=== PATIENT | female | born 1970 | race Hispanic/Latino ===

== ENCOUNTER 2018-07-25 16:51 | Emergency (ER) | payer OTHER ==
[2018-07-25] MEDS ORDERED: FAMOTIDINE/PF 20 MG/2 ML VIAL IV ONE (17:37)
[2018-07-25 18:05] LABS: BILIRUBIN,URINE Negative (NEGATIVE); COLOR,URINE Yellow (YELLOW); GLUCOSE, URINE (UA) Negative (NEGATIVE); KETONES,URINE Trace mg/dL (NEGATIVE); LEUKOCYTE ESTERASE ,URINE Negative (NEGATIVE); NITRATE,URINE Negative (NEGATIVE); OCCULT BLOOD,URINE Negative (NEGATIVE); PROTEIN,URINE Negative (NEGATIVE)
[2018-07-25 18:06] LABS: APPEARANCE,URINE SLIGHTLY CLOUDY (CLEAR)
[2018-07-25 18:12] LABS: BACTERIA,URINE Rare /HPF (None Seen); MUCUS,URINE Rare LPF (None Seen); RBC,URINE 0-1 /HPF (0-1); SQUAMOUS EPITHELIAL CELL,UR Rare /HPF (0-2); WBC,URINE 0-1 /HPF (0-1)
[2018-07-25] MEDS ORDERED: LIDOCAINE HCL 2% VISCOUS 15 ML UDCUP ONE (18:42)
[2018-07-25] MEDS ORDERED: LACTULOSE 20 GM/30 ML UDCUP ONE (18:42)
[2018-07-25] MEDS ORDERED: MAG HYDROX/AL HYDROX/SIMETH ES 30 ML SUSP UDCUP ONE (18:43)
== END 2018-07-25 19:19 | disposition home or self-care (01) ==
LOC: EDH 16:51
DX: C18.9 Malignant neoplasm of colon, unspecified (principal); K59.00 Constipation, unspecified; R10.13 Epigastric pain; Z72.0 Tobacco use
CPT/HCPCS: 36415; 74018; 81001; 83690; 96374; 99285; J3490

== ENCOUNTER 2018-12-22 20:51 | Inpatient (IN) | payer OTHER ==
[~2018-12-22] VITALS: Ht 160 cm; Wt 81.2 kg
[2018-12-22 21:57] LABS: BASOPHILS % (AUTO) 0.1 % (0.0-5.0); EOSINOPHILS % (AUTO) 0.1 % (0.0-8.0); LYMPHOCYTES % (AUTO) 5.5 % (21.0-51.0); MEAN CORPUSCULAR HEMOGLOBIN 32.7 pg (27.0-33.0); MEAN CORPUSCULAR HGB CONC 33.7 g/dL (32.0-36.0); MEAN CORPUSCULAR VOLUME 97.1 fL (79-99); MONOCYTES % (AUTO) 0.6 % (3.0-13.0); NEUTROPHILS % (AUTO) 93.7 % (40.0-77.0); NUCLEATED RED BLOOD CELLS 0.1 % (0.0-0.19); PLATELET COUNT (AUTO) 150 K/uL (130-400); RED BLOOD CELL COUNT(AUTO) 3.92 MIL/uL (4.00-5.50); RED CELL DISTRIBUTION WIDTH 18.1 % (11.0-15.5); WHITE BLOOD COUNT (AUTO) 12.5 K/uL (4.8-10.8)
[2018-12-22] MEDS: PYRIDOXINE HCL 50 MG TABLET PO SCH (22:07)
[2018-12-22] MEDS: GABAPENTIN 100 MG CAPSULE PO SCH (22:07)
[2018-12-22 22:11] LABS: POTASSIUM 3.5 mmol/L (3.5-5.1)
[2018-12-22 22:14] LABS: INR 0.94 (0.85-1.15); PARTIAL THROMBOPLASTIN TIME 26.1 SEC (26.3-35.5); PROTHROMBIN TIME 9.9 SEC (9.6-11.6)
[2018-12-22 22:15] LABS: ALBUMIN 3.7 g/dL (3.5-5.0); BILIRUBIN,TOTAL 0.3 mg/dL (0.2-1.0)
[2018-12-22] MEDS: SODIUM CHLORIDE 0.9% 1000ML 1,000 ML IV SCH (22:15)
[2018-12-22] MEDS ORDERED: SODIUM CHLORIDE 0.9% 1000ML 1,000 ML IV ONE (22:48)
[2018-12-22] MEDS ORDERED: GABAPENTIN 100 MG CAPSULE ONE (23:37)
[2018-12-22 23:50] VITALS: BP 118/78
--- NOTE | 2018-12-22 23:50 | NUR ---
Admission note: Received pt. per stretcher. AOx3. Can amb with assist. Verbalized she still has a feeling of numbness and tingling sensation , but tolerable. Has portacath to right chest with 1L NS 100 at ml/hr - intact and patency checked. Pt. oriented to room and used of call light. Policies and procedures explained. Verbalized understanding.Assessment done. VS checked and recorded. Orders carried out. Monitored and observed for any unusualities. Cared for and needs attended.No apparent distress noted. Endorsed to next shift accordingly.
[2018-12-23 03:10] VITALS: BP 104/63
[2018-12-23] MEDS: SODIUM CHLORIDE 0.9% 1000ML 1,000 ML IV SCH ×2 (07:23→19:51)
[2018-12-23 09:19] VITALS: BP 111/69
[2018-12-23] MEDS: PYRIDOXINE HCL 50 MG TABLET PO SCH (11:22)
[2018-12-23] MEDS: GABAPENTIN 100 MG CAPSULE PO SCH ×2 (11:22→20:17)
[2018-12-23 12:01] VITALS: BP 110/67
[2018-12-23] MEDS ORDERED: KETOROLAC TROMETHAMINE 15MG/ML IV PRN (12:45)
[2018-12-23 16:59] VITALS: BP 112/68
[2018-12-23 20:16] VITALS: BP 110/62
[2018-12-24 00:09] VITALS: BP 99/54
[2018-12-24 04:00] VITALS: BP 104/68
[2018-12-24] MEDS: SODIUM CHLORIDE 0.9% 1000ML 1,000 ML IV SCH ×2 (04:15→20:26)
[2018-12-24] MEDS: GABAPENTIN 100 MG CAPSULE PO SCH ×2 (07:37→20:26)
[2018-12-24] MEDS: PYRIDOXINE HCL 50 MG TABLET PO SCH (07:37)
[2018-12-24 08:57] VITALS: BP 106/71
--- NOTE | 2018-12-24 10:00 | NUR ---
MD MEYERS PATIENT AWAKE AND ALERT IN BED. VOICES ALL NEEDS, NO COMPLAINTS OF PAIN VOICED AT THIS TIME. VITALS STABLE. AFEBRILE. TOLERATING NS INFUSING AT 100ML/HR. VISITED WITH PATIENT. POC DISCUSSED. NEW ORDERS RECEIVED AND CARRIED OUT. NO SIGNS OF DISTRESS NOTED. UP AD DAVEY. AMBULATES IN HALLWAY. CALL LIGHT WITHIN REACH. WILL CONTINUE TO BE OBSERVED. Addendum: 12/24/18 at 1354 by GISELL LE RN RN Amended: Links added.
[2018-12-24 12:06] VITALS: BP 108/65
--- NOTE | 2018-12-24 14:57 | NUR ---
cm note met with patient and states resides at home with mother, independent and active at home. 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 and drives. no dme. no services. dc plan is back to same setting at [place] no dc needs. Addendum: 12/24/18 at 1459 by JULIO CESAR WHITFIELD CM Amended: Links added.
[2018-12-24 16:57] VITALS: BP 108/65
[2018-12-24 19:30] VITALS: BP 102/65
[2018-12-25 00:44] VITALS: BP 101/51
[2018-12-25 04:00] VITALS: BP 97/60
[2018-12-25 05:35] LABS: HEMATOCRIT 31.2 % (36-48); MEAN CORPUSCULAR HEMOGLOBIN 33.6 pg (27.0-33.0); MEAN CORPUSCULAR HGB CONC 33.8 g/dL (32.0-36.0); MEAN CORPUSCULAR VOLUME 99.3 fL (79-99); NUCLEATED RED BLOOD CELLS 0.1 % (0.0-0.19); PLATELET COUNT (AUTO) 110 K/uL (130-400); RED BLOOD CELL COUNT(AUTO) 3.14 MIL/uL (4.00-5.50); WHITE BLOOD COUNT (AUTO) 4.9 K/uL (4.8-10.8)
[2018-12-25 05:38] LABS: CREATININE 0.7 mg/dL (0.5-1.5); POTASSIUM 3.6 mmol/L (3.5-5.1)
[2018-12-25 08:00] VITALS: BP 104/54
[2018-12-25] MEDS: GABAPENTIN 100 MG CAPSULE PO SCH ×3 (09:00→21:11)
[2018-12-25] MEDS: PYRIDOXINE HCL 50 MG TABLET PO SCH (09:05)
[2018-12-25 11:00] VITALS: BP 94/62
[2018-12-25] MEDS: SODIUM CHLORIDE 0.9% 1000ML 1,000 ML IV SCH ×2 (11:37→21:15)
--- NOTE | 2018-12-25 12:10 | NUR ---
Dr. Blackmon in to see pt.
[2018-12-25] MEDS ORDERED: GADODIAMIDE 10 MMOL/20 ML ML IV ONE (12:48)
--- NOTE | 2018-12-25 12:55 | NUR ---
Pt. taken for MRI via W/C, left in stable condition.
--- NOTE | 2018-12-25 13:26 | NUR ---
Pt. back from MRI in stable condition.
[2018-12-25 16:00] VITALS: BP 100/66
--- NOTE | 2018-12-25 17:20 | NUR ---
RD Notification Patient tolerating current Regular diet with no report of GI distress and PO intake at 100% as per patient. Patient demonstrates awareness of dietary recommendations with ileostomy. Patient LBM 12/24/18. Patient monitored lab: ca 8.1. Patient BMI 31.7, Obesity class I. Patient with PMH of Rectal cancer, DM, Neuropathy. RD to continue to monitor. Please notify RD as nutritional concerns arise. Thank you. Addendum: 12/25/18 at [address] RD Amended: Links added.
[2018-12-25 20:52] VITALS: BP 104/69
[2018-12-26 00:19] VITALS: BP 97/58
[2018-12-26 04:38] VITALS: BP 80/57
[2018-12-26 05:11] LABS: BASOPHILS % (AUTO) 0.8 % (0.0-5.0); EOSINOPHILS % (AUTO) 5.4 % (0.0-8.0); HEMATOCRIT 30.2 % (36-48); LYMPHOCYTES % (AUTO) 15.8 % (21.0-51.0); MEAN CORPUSCULAR HEMOGLOBIN 33.7 pg (27.0-33.0); MEAN CORPUSCULAR HGB CONC 34.6 g/dL (32.0-36.0); MEAN CORPUSCULAR VOLUME 97.5 fL (79-99); MONOCYTES % (AUTO) 3.2 % (3.0-13.0); NEUTROPHILS % (AUTO) 74.8 % (40.0-77.0); NUCLEATED RED BLOOD CELLS 0.2 % (0.0-0.19); PLATELET COUNT (AUTO) 103 K/uL (130-400); RED BLOOD CELL COUNT(AUTO) 3.09 MIL/uL (4.00-5.50); RED CELL DISTRIBUTION WIDTH 18.4 % (11.0-15.5); WHITE BLOOD COUNT (AUTO) 4.5 K/uL (4.8-10.8)
[2018-12-26 05:23] LABS: CREATININE 0.7 mg/dL (0.5-1.5); POTASSIUM 3.8 mmol/L (3.5-5.1)
[2018-12-26 08:00] VITALS: BP 109/73
[2018-12-26] MEDS: PYRIDOXINE HCL 50 MG TABLET PO SCH ×2 (09:00→09:20)
[2018-12-26] MEDS: GABAPENTIN 100 MG CAPSULE PO SCH (09:19)
[2018-12-26 12:00] VITALS: BP 140/70
[2018-12-26] MEDS ORDERED: HEPARIN SODIUM/PF 100UNIT/ML 5ML SYRINGE IV SCH (13:00)
== END 2018-12-26 14:05 | disposition home or self-care (01) | DRG 74 ==
LOC: EDH 20:51 → EDHIP 21:47 → 4CH 22:28
PROVIDERS: ADMIT Internal Medicine Medical Oncology; ATTEND Internal Medicine Medical Oncology
DX: G62.0 Drug-induced polyneuropathy (principal); E86.0 Dehydration; D72.829 Elevated white blood cell count, unspecified; K21.9 Gastro-esophageal reflux disease without esophagitis; R47.81 Slurred speech; T45.1X5A Adverse effect of antineoplastic and immunosuppressive drugs, initial encounter; Z80.0 Family history of malignant neoplasm of digestive organs; Z85.048 Personal history of other malignant neoplasm of rectum, rectosigmoid junction, and anus; Z92.3 Personal history of irradiation; Z80.3 Family history of malignant neoplasm of breast; Y92.89 Other specified places as the place of occurrence of the external cause
CPT/HCPCS: 36415; 70553; 80048; 80053; 82948; 85025; 85027; 85610; 85730; 93005; A9579; G0378; J1642; J1885; J7030

== ENCOUNTER 2019-05-23 11:20 | Emergency (ER) | payer OTHER ==
[2019-05-23] MEDS ORDERED: SODIUM CHLORIDE 0.9% 1000ML 1,000 ML IV ONE (11:36)
[2019-05-23 12:54] LABS: BASOPHILS % (AUTO) 0.4 % (0.0-5.0); EOSINOPHILS % (AUTO) 2.4 % (0.0-8.0); HEMATOCRIT 34.3 % (36-48); LYMPHOCYTES % (AUTO) 13.7 % (21.0-51.0); MEAN CORPUSCULAR HEMOGLOBIN 31.7 pg (27.0-33.0); MEAN CORPUSCULAR HGB CONC 33.6 g/dL (32.0-36.0); MEAN CORPUSCULAR VOLUME 94.3 fL (79-99); MONOCYTES % (AUTO) 6.5 % (3.0-13.0); PLATELET COUNT (AUTO) 269 K/uL (130-400); RED BLOOD CELL COUNT(AUTO) 3.64 MIL/uL (4.00-5.50); RED CELL DISTRIBUTION WIDTH 13.8 % (11.0-15.5); WHITE BLOOD COUNT (AUTO) 5.4 K/uL (4.8-10.8)
[2019-05-23 13:06] LABS: CREATININE 0.8 mg/dL (0.5-1.5)
[2019-05-23 13:09] LABS: INR 0.97 (0.85-1.15); PROTHROMBIN TIME 10.2 SEC (9.6-11.6)
[2019-05-23 13:11] LABS: ALBUMIN 3.4 g/dL (3.5-5.0); BILIRUBIN,TOTAL 0.2 mg/dL (0.2-1.0); TOTAL PROTEIN, SERUM 7.2 g/dL (6.0-8.3)
[2019-05-23] MEDS ORDERED: IOHEXOL-350 75 ML VIAL IV ONE (13:31)
== END 2019-05-23 16:30 | disposition home or self-care (01) ==
LOC: EDH 11:20
DX: K92.2 Gastrointestinal hemorrhage, unspecified (principal); D64.9 Anemia, unspecified; Z90.710 Acquired absence of both cervix and uterus; Z85.038 Personal history of other malignant neoplasm of large intestine; Z72.0 Tobacco use
CPT/HCPCS: 36415; 74177; 80053; 85025; 85610; 85730; 86850; 86900; 86901; 99285; J7030; Q9967

== ENCOUNTER 2020-05-04 06:01 | Emergency (ER) | payer OTHER ==
[2020-05-04] MEDS ORDERED: ORPHENADRINE CITRATE 30 MG/ML ML ONE (06:57)
[2020-05-04 06:58] LABS: BASOPHILS % (AUTO) 0.6 % (0.0-5.0); EOSINOPHILS % (AUTO) 4.1 % (0.0-8.0); HEMATOCRIT 37.5 % (36-48); LYMPHOCYTES % (AUTO) 17.4 % (21.0-51.0); MEAN CORPUSCULAR HEMOGLOBIN 30.7 pg (27.0-33.0); MEAN CORPUSCULAR HGB CONC 33.1 g/dL (32.0-36.0); MEAN CORPUSCULAR VOLUME 92.8 fL (79-99); MONOCYTES % (AUTO) 5.7 % (3.0-13.0); PLATELET COUNT (AUTO) 249 K/uL (130-400); RED BLOOD CELL COUNT(AUTO) 4.04 MIL/uL (4.00-5.50); RED CELL DISTRIBUTION WIDTH 12.5 % (11.0-15.5); WHITE BLOOD COUNT (AUTO) 6.3 K/uL (4.8-10.8)
[2020-05-04] MEDS ORDERED: SODIUM CHLORIDE 0.9% 1000ML 1,000 ML IV ONE (06:58)
[2020-05-04 07:18] LABS: INR 0.95 (0.85-1.15); PARTIAL THROMBOPLASTIN TIME 28.9 SEC (26.3-35.5); PROTHROMBIN TIME 10.3 SEC (9.6-11.6)
[2020-05-04 07:25] LABS: ALBUMIN 3.6 g/dL (3.5-5.0); CREATININE 0.8 mg/dL (0.5-1.5); POTASSIUM 4.1 mmol/L (3.5-5.1); TOTAL PROTEIN, SERUM 7.1 g/dL (6.0-8.3)
[2020-05-04] MEDS ORDERED: IOHEXOL-350 75 ML VIAL IV ONE (08:08)
[2020-05-04 08:09] LABS: BILIRUBIN,TOTAL 0.2 mg/dL (0.2-1.0)
== END 2020-05-04 09:40 | disposition home or self-care (01) ==
LOC: EDH 06:01
DX: M62.830 Muscle spasm of back (principal); Z87.891 Personal history of nicotine dependence; Z90.710 Acquired absence of both cervix and uterus; Z85.038 Personal history of other malignant neoplasm of large intestine
CPT/HCPCS: 36415; 71275; 80053; 82550; 83690; 84484; 85025; 85610; 85730; 93005; 96374; 99285; J2360; J7030; Q9967